=== PATIENT | male | born 1970 | race Caucasian/White ===

== ENCOUNTER 2021-12-02 10:12 | Outpatient (CLI) | payer BC, SELFPAY ==
--- NOTE | 2021-12-02 10:38 | DI.RAD_ITS ---
Exam(s) XR FOREARM LT EXAM: XR FOREARM LT CLINICAL HISTORY: PAIN AND SWELLING TO 1ST METACARPAL EXTENDING INTO WRIST,M79.645. TECHNIQUE: 2D digital imaging was performed. COMPARISON: No exams were available for comparison FINDINGS: No evidence of fracture. No obvious elbow joint effusion. Chondrocalcinosis is noted in the triangu lar fibrocartilage on the medial aspect of the wrist. Chondrocalcinosis or loose bodies seen in the lateral aspect of the elbow joint. IMPRESSION: DATA REPOSITORY: RADIATION DOSE DELIVERED:
--- NOTE | 2021-12-02 10:38 | DI.RAD_ITS ---
Exam(s) XR HAND LT COMPLETE EXAM: XR HAND LT COMPLETE CLINICAL HISTORY: LT THUMB PAIN EXTENDING INTO WRIST, M79.645. TECHNIQUE: 2D digital imaging was performed. COMPARISON: No exams were available for comparison FINDINGS: Ring is not removed from the 4th finger. There are no acute fractures evident in the metacarpals and phalanges. No osseous lesions nor erosions. Incidentally noted is calcification just medial to the ulnar styloid. This may be related to prior fracture at this site versus is chondrocalcinosis in th e triangular fibrocartilage at this level. There are degenerative changes in the 1st carpometacarpal joint, with joint space narrowing and sub a rticular degenerative cysts. No osseous lesions nor erosions evident IMPRESSION: DATA REPOSITORY: RADIATION DOSE DELIVERED:
== END 2021-12-02 10:32 ==
PROVIDERS: Visit Provider Nurse Practitioner Family
DX: M79.632 Pain in left forearm (principal); M79.645 Pain in left finger(s); M25.532 Pain in left wrist; M18.12 Unilateral primary osteoarthritis of first carpometacarpal joint, left hand
CPT/HCPCS: 73090; 73130